=== PATIENT | female | born 1985 | race Caucasian/White ===

== ENCOUNTER 2017-11-16 07:30 | Observation (INO) | payer OTHER ==
[~2017-11-16] VITALS: Ht 162.6 cm; Wt 70.8 kg
[2017-11-16 12:26] LABS: BASOPHILS # (AUTO) 0.2 K/uL (0.0-0.2); BASOPHILS % (AUTO) 0.5 % (0.0-2.0); HEMATOCRIT 32.4 % (36-48); HEMOGLOBIN 11.2 g/dL (12.0-16.0); LYMPHOCYTES # (AUTO) 0.9 K/uL (1.0-5.5); LYMPHOCYTES % (AUTO) 3.1 % (20.5-51.5); MEAN CORPUSCULAR HEMOGLOBIN 32 pg (27-31); MEAN CORPUSCULAR HGB CONC 35 % (32-36); MEAN CORPUSCULAR VOLUME 93 fL (79.0-98.0); MONOCYTES # (AUTO) 0.9 K/uL (0.0-1.0); MONOCYTES % (AUTO) 2.9 % (1.7-9.3); NEUTROPHILS # (AUTO) 28.5 K/uL (1.8-7.7); NEUTROPHILS % (AUTO) 93.5 % (40.0-70.0); PLATELET COUNT (AUTO) 240 K/uL (130-430); RED BLOOD CELL COUNT(AUTO) 3.49 MIL/uL (4.2-6.2); RED CELL DISTRIBUTION WIDTH 13.4 % (9.0-15.0)
[2017-11-16 12:33] LABS: WHITE BLOOD COUNT (AUTO) 30.5 K/uL (4.8-10.8)
[2017-11-16 12:48] LABS: BILIRUBIN,URINE NEGATIVE (NEGATIVE); BLOOD, URINE NEGATIVE (NEGATIVE); CLARITY/URINE SL HAZY (CLEAR); COLOR,URINE YELLOW (YELLOW); GLUCOSE,URINE NEGATIVE (NEGATIVE); KETONES,URINE NEGATIVE (NEGATIVE); LEUKOCYTE ESTERASE ,URINE 1+ (NEGATIVE); NITRITE, URINE NEGATIVE (NEGATIVE); PROTEIN URINE NEGATIVE (NEGATIVE); UROBILINOGEN,URINE 0.2 (0.2-1.0)
[2017-11-16 13:10] LABS: BACTERIA,URINE MODERATE /HPF (None Seen); MUCUS,URINE 1+ /LPF (None Seen); RBC,URINE 0-3 /HPF (0-3)
== END 2017-11-16 13:00 | disposition home or self-care (01) ==
LOC: SPU 07:30
PROVIDERS: ADMIT Obstetrics & Gynecology; ATTEND Obstetrics & Gynecology
DX: O26.892 Other specified pregnancy related conditions, second trimester (principal); R10.9 Unspecified abdominal pain; O99.89 Other specified diseases and conditions complicating pregnancy, childbirth and the puerperium; M54.5 Low back pain; Z3A.22 22 weeks gestation of pregnancy
CPT/HCPCS: 36415; 76805; 81000; 85025; 87086; G0378